=== PATIENT | male | born 1960 | race Two or more races ===

== ENCOUNTER 2016-07-01 08:18 | Emergency (ER) | payer SELFPAY ==
[~2016-07-01 08:18] MED LIST: CLOP75TA28 PO; LEVO-28 PO; METF500T PO
[2016-07-01 08:40] VITALS: BP 93/46
[2016-07-01] MEDS ORDERED: cefTRIAXone SOD 1,000 MG VL IM ONE (09:45)
[2016-07-01] MEDS ORDERED: TETANUS-DIPTH-ACEL PERTUSSIS 0.5ML SYRG IM ONE (09:45)
== END 2016-07-01 10:57 | disposition home or self-care (01) ==
LOC: ER 08:18
DX: L02.512 Cutaneous abscess of left hand (principal); Z59.0 Homelessness; Z86.73 Personal history of transient ischemic attack (TIA), and cerebral infarction without residual deficits; Z79.899 Other long term (current) drug therapy; Z23 Encounter for immunization; E11.9 Type 2 diabetes mellitus without complications; F17.210 Nicotine dependence, cigarettes, uncomplicated
CPT/HCPCS: 26010; 73140; 90471; 90715; 96372; 99284; J0696

== ENCOUNTER 2016-07-04 08:18 | Emergency (ER) | payer SELFPAY ==
[2016-07-04 08:33] VITALS: BP 98/62
== END 2016-07-04 10:24 | disposition left against medical advice (07) ==
LOC: ER 08:19
DX: L02.512 Cutaneous abscess of left hand (principal); Z48.01 Encounter for change or removal of surgical wound dressing; Z53.21 Procedure and treatment not carried out due to patient leaving prior to being seen by health care provider

== ENCOUNTER 2016-07-05 08:52 | Emergency (ER) | payer SELFPAY ==
[~2016-07-05] VITALS: Ht 165.1 cm; Wt 63.7 kg
[2016-07-05 09:23] VITALS: BP 130/67
[2016-07-05] MEDS ORDERED: NEOMYCIN-BACITRACIN-POLYM UNITDOSE PKG TOP OINT TOP ONE (09:45)
== END 2016-07-05 09:48 | disposition home or self-care (01) ==
LOC: ER 08:52
DX: L02.512 Cutaneous abscess of left hand (principal); F17.210 Nicotine dependence, cigarettes, uncomplicated; Z59.0 Homelessness; E11.9 Type 2 diabetes mellitus without complications; Z86.73 Personal history of transient ischemic attack (TIA), and cerebral infarction without residual deficits

== ENCOUNTER 2016-07-16 09:14 | Emergency (ER) | payer SELFPAY ==
[~2016-07-16] VITALS: Ht 165.1 cm; Wt 64.9 kg
[2016-07-16 09:24] VITALS: BP 97/55
== END 2016-07-16 11:26 | disposition home or self-care (01) ==
LOC: ER 09:14
DX: L02.512 Cutaneous abscess of left hand (principal); F17.210 Nicotine dependence, cigarettes, uncomplicated; Z86.73 Personal history of transient ischemic attack (TIA), and cerebral infarction without residual deficits; E11.9 Type 2 diabetes mellitus without complications; Z88.6 Allergy status to analgesic agent

== ENCOUNTER 2016-07-23 14:39 | Emergency (ER) | payer SELFPAY ==
[~2016-07-23] VITALS: Ht 162.6 cm; Wt 68.3 kg
[2016-07-23 14:53] VITALS: BP 105/75
== END 2016-07-23 16:17 | disposition home or self-care (01) ==
LOC: ER 14:39
DX: T23.222D Burn of second degree of single left finger (nail) except thumb, subsequent encounter (principal); Z48.01 Encounter for change or removal of surgical wound dressing